=== PATIENT | female | born 1950 | race Two or more races ===

== ENCOUNTER 2018-03-27 13:44 | Outpatient (CLI) | payer OTHER ==
[~2018-03-27 13:44] MED LIST: MEDROLPACK PO
== END 2018-03-27 14:00 | disposition home or self-care (01) ==
LOC: TOM 13:44
DX: R51 Headache (principal)

== ENCOUNTER 2018-10-05 11:26 | Outpatient (CLI) | payer OTHER | END 2018-10-05 11:29 | disposition home or self-care (01) | LOC: RAD 11:26 | DX: R07.89 Other chest pain (principal) ==

== ENCOUNTER → 2019-01-25 | Outpatient (CLI) | payer OTHER | END | disposition home or self-care (01) | LOC: RAD 10:31 | DX: M17.0 Bilateral primary osteoarthritis of knee (principal) ==

== ENCOUNTER 2019-02-03 09:49 | Outpatient (CLI) | payer OTHER | END 2019-02-03 09:57 | disposition home or self-care (01) | LOC: NUCLEAR 09:49 | DX: M81.0 Age-related osteoporosis without current pathological fracture (principal); M85.9 Disorder of bone density and structure, unspecified ==

== ENCOUNTER 2019-03-26 09:00 | Outpatient (CLI) | payer OTHER | END 2019-03-26 09:13 | disposition home or self-care (01) | LOC: SONOGRAMA 09:00 → MAMO-SONO 09:15 | DX: M54.5 Low back pain (principal); E55.9 Vitamin D deficiency, unspecified; E03.8 Other specified hypothyroidism; I10 Essential (primary) hypertension; E78.89 Other lipoprotein metabolism disorders ==

== ENCOUNTER 2019-05-03 10:18 | Outpatient (CLI) | payer OTHER | END 2019-05-03 10:20 | disposition home or self-care (01) | LOC: SONOGRAMA 10:18 | DX: E04.1 Nontoxic single thyroid nodule (principal) ==

== ENCOUNTER 2019-05-16 10:47 | Emergency (ER) | payer OTHER ==
[~2019-05-16] VITALS: Ht 160 cm; Wt 66.2 kg
[2019-05-16] MEDS ORDERED: ABILIFY5 MG PO (10:54)
[2019-05-16] MEDS ORDERED: CRESTOR10 MG PO (10:54)
[2019-05-16] MEDS ORDERED: VITAMIN D35000 UNI2 PO (10:55)
[2019-05-16] MEDS ORDERED: CLONAZEPAM0.5 MG PO (10:55)
== END 2019-05-16 13:08 | disposition home or self-care (01) ==
LOC: ER 10:47
DX: R09.81 Nasal congestion (principal); F06.4 Anxiety disorder due to known physiological condition

== ENCOUNTER 2019-06-28 07:27 | Outpatient (CLI) | payer OTHER ==
[~2019-06-28 07:27] MED LIST changes: +ABILIFY5 MG PO; +CLONAZEPAM0.5 MG PO; +CRESTOR10 MG PO; +VITAMIN D35000 UNI2 PO
== END 2019-06-28 09:16 | disposition home or self-care (01) ==
LOC: SONOGRAMA 07:27
DX: E03.8 Other specified hypothyroidism (principal)

== ENCOUNTER 2020-04-04 07:53 | Outpatient (CLI) | payer OTHER | END 2020-04-04 08:18 | disposition home or self-care (01) | LOC: MRI 07:53 | PROVIDERS: ATTEND Otolaryngology Otology & Neurotology | DX: K57.90 Diverticulosis of intestine, part unspecified, without perforation or abscess without bleeding (principal); K38.2 Diverticulum of appendix | CPT/HCPCS: 70551 ==

== ENCOUNTER → 2020-04-07 | Outpatient (CLI) | payer OTHER | END | disposition home or self-care (01) | LOC: SONOGRAMA 10:34 | PROVIDERS: ATTEND Family Medicine Geriatric Medicine | DX: R10.84 Generalized abdominal pain (principal); R63.4 Abnormal weight loss ==

== ENCOUNTER → 2020-05-28 | Emergency (ER) | payer OTHER ==
[~2020-05-28] MED LIST changes: +LAMICTAL200 M1; +SEROQUEL25 MG
== END | disposition left against medical advice (07) ==
LOC: ER 08:31
DX: Z53.21 Procedure and treatment not carried out due to patient leaving prior to being seen by health care provider (principal)

== ENCOUNTER 2020-06-02 00:51 | Emergency (ER) | payer OTHER ==
[~2020-06-02] VITALS: Ht 160 cm; Wt 55.8 kg
[~2020-06-02 00:51] MED LIST changes: -LAMICTAL200 M1; -SEROQUEL25 MG
[2020-06-02] MEDS ORDERED: LAMICTAL200 M1 (01:05)
[2020-06-02] MEDS ORDERED: SEROQUEL25 MG (01:05)
[2020-06-02] MEDS ORDERED: CLONAZEPAM0.5 MG PO (01:57)
== END 2020-06-02 02:02 | disposition home or self-care (01) ==
LOC: ER 00:51
DX: F06.4 Anxiety disorder due to known physiological condition (principal)